=== PATIENT | male | born 1960 | race Caucasian/White ===

== ENCOUNTER 2017-01-14 11:31 | Emergency (ER) | payer BC ==
[2017-01-14] MEDS ORDERED: Sodium Chloride 0.9% 10 ML Syringe FLUSH PRN (11:39)
[2017-01-14 11:40] VITALS: BP 120/93
[2017-01-14] MEDS ORDERED: Sodium Chloride 0.9% 1,000 ML IV SCH (11:45)
[2017-01-14 12:20] LABS: CHLORIDE,CL 104 mmol/L (98-107); SODIUM,NA 138 mmol/L (136-145)
--- NOTE | 2017-01-14 12:23 | EDM.PDOC ---
ED HPI GI/ABDOMINAL - General Chief Complaint: Abdominal Pain Stated Complaint: LOWER LEFT ABDOMINAL PAIN Time Seen by Provider: 01/14/17 11:40 Source of Information: Reports: Patient, Family, RN, RN notes reviewed History Limitations: Reports: No limitations - History of Present Illness INITIAL COMMENTS - FREE TEXT/NARRATIVE: Patient presents to the ED at [facility] with LLQ abdominal pain. The pain started last night. Patient is concerned because he has a strong history of diverticulitis. Patient states he has felt nauseated at times. No vomiting or diarrhea. He does take Metamucil daily since his last bout of diverticulitis 3 years ago. He does drink diet soda daily. He does consume caffeine. No recent changes with medications. No close family members with similar symptoms. Symptom Onset Date: 01/13/17 Symptom Onset Time: 20:00 Timing/Duration: Reports: Constant, Waxing/waning Location: LLQ Quality: Reports: throbbing Severity: moderate Improves with: Reports: sitting up Worsens with: Reports: palpation, lying down Context: Denies: sick contact, bad/questionable food, out of country travel, recent surgery, recent trauma Associated Symptoms: Reports: denies other symptoms - Related Data Allergies/ADRs: Allergies Allergy/AdvReac Type Severity Reaction Status Date / Time No Known Allergies Allergy Verified 03/08/16 09:29 Home Meds: Home Meds Ciprofloxacin HCl [Cipro] 500 mg PO BID #18 tablet 01/14/17 [Rx] metroNIDAZOLE [Flagyl] 500 mg PO Q8H #26 tablet 01/14/17 [Rx] Past Medical History - Past Health History Medical/Surgical History: Denies Medical/Surgical History HEENT History: Reports: None Cardiovascular History: Reports: High cholesterol Gastrointestinal History: Reports: Other (see below) Other Gastrointestinal History: DIVERTICULITIS. CHRONIC CHEST PAIN AND DYSPHAGIA Genitourinary History: Reports: None Other Genitourinary History: ED Musculoskeletal History: Reports: Other (see below) Other Musculoskeletal History: BRUSITIS IN BOTH SHOULDERS Neurological History: Reports: None Psychiatric History: Reports: None Other Psychiatric History: INSOMNIA Endocrine/Metabolic History: Reports: None Hematologic History: Reports: None Oncologic (Cancer) History: Reports: None Dermatologic History: Reports: None - Past Surgical History HEENT Surgical History: Reports: None Cardiovascular Surgical History: Reports: None GI Surgical History: Reports: Colonoscopy Musculoskeletal Surgical History: Reports: Arthroscopic procedure, Shoulder surgery Social & Family History - Tobacco Use Smoking Status *Q: Never Smoker Years of Tobacco use: 5 Used Tobacco, but Quit: Yes Month Tobacco Last Used: 1978 Second Hand Smoke Exposure: No - Alcohol Use Days Per Week of Alcohol Use: 0 - Recreational Drug Use Recreational Drug Use: No ED ROS GENERAL - Review of Systems Review Of Systems: See Below Constitutional: Denies: fever, chills, weakness, decreased appetite, weight loss Respiratory: Denies: shortness of breath, cough Cardiovascular: Denies: Chest pain, Palpitations GI/Abdominal: Reports: Abdominal pain, Nausea. Denies: Bloody stool, Diarrhea, Decreased appetite, Vomiting : Reports: no symptoms Skin: Reports: no symptoms Neurological: Denies: dizziness, headache, numbness, paresthesia, tingling ED EXAM, GI/ABD - Physical Exam Exam: See Below Exam Limited By: No limitations General Appearance: alert, no apparent distress Respiratory/Chest: no respiratory distress, lungs clear, normal breath sounds Cardiovascular: regular rate, rhythm GI/Abdominal: soft, hyperactive bowel sounds, tenderness, guarding, rebound (Male) Exam: Deferred Neurological: alert, oriented Skin Exam: Warm, Dry, Intact, Normal color, No rash Course - Vital Signs Last Recorded V/S: Last Vital Signs Temp 35.6 C 01/14/17 11:39 Pulse 75 01/14/17 11:39 Resp 18 01/14/17 11:39 BP 120/93 H 01/14/17 11:39 Pulse Ox 99 01/14/17 11:39 - Orders/Labs/Meds Orders: Active Orders 24 hr Category Date Time Status Abdomen Pelvis w Cont [CT] Stat Exams 01/14/17 11:40 Taken Sodium Chloride 0.9% [Normal Saline] 1,000 ml Med 01/14/17 11:45 Active IV ASDIRECTED Sodium Chloride 0.9% [Saline Flush] Med 01/14/17 11:39 Active 10 ml FLUSH ASDIRECTED PRN metroNIDAZOLE [Take Home: metroNIDAZOLE 500 MG, 4 Tab Med 01/14/17 13:53 Once Pack] 1 packet PO ONETIME ONE Peripheral IV Insertion Adult [OM.PC] Routine Oth 01/14/17 11:39 Ordered Medication Orders Sodium Chloride (Normal Saline) 1,000 mls @ 999 mls/hr IV ASDIRECTED GARRY Last Admin: 01/14/17 11:58 Dose: 999 mls/hr Sodium Chloride (Saline Flush) 10 ml FLUSH ASDIRECTED PRN PRN Reason: Keep Vein Open Last Admin: 01/14/17 11:57 Dose: 10 ml Labs: Laboratory Tests 01/14/17 01/14/17 Range/Units 11:54 11:54 WBC 8.7 (4.0-10.0) x10^3/uL RBC 5.24 (4.5-6.0) x10^6/uL Hgb 15.4 (14.0-18.0) g/dL Hct 44.5 (40.0-52.0) % MCV 84.9 (78.0-93.0) fL MCH 29.4 (26.0-32.0) pg MCHC 34.6 (32.0-36.0) g/dL RDW Coeff of Marco 12.5 (10.0-15.0) % Plt Count 218 (130-400) x10^3/uL Neut % (Auto) 75.4 (50.0-80.0) % Lymph % (Auto) 12.9 L (25.0-50.0) % [place] % (Auto) 8.7 (2.0-11.0) % Eos % (Auto) 2.4 (0.0-4.0) % Baso % (Auto) 0.6 (0.2-1.2) % Sodium 138 (136-145) mmol/L Potassium 4.3 (3.5-5.1) mmol/L Chloride 104 (98-107) mmol/L Carbon Dioxide 31 (21-32) mmol/L BUN 15 (7-18) mg/dL Creatinine 1.5 H (0.70-1.30) mg/dL Est Cr Clr Drug Dosing TNP Estimated GFR (MDRD) 49 Glucose 107 H (74-106) mg/dL Calcium 9.1 (8.5-10.1) mg/dL Corrected Calcium 9.34 (8.5-10.1) mg/dL Total Bilirubin 0.6 (0.2-1.0) mg/dL AST 23 (15-37) U/L ALT 38 (16-63) U/L Alkaline Phosphatase 85 (46-116) U/L Total Protein 7.4 (6.4-8.2) g/dL Albumin 3.7 (3.4-5.0) g/dL Globulin 3.7 Albumin/Globulin Ratio 1.00 Amylase 59 (25-115) U/L Lipase 193 (73-393) U/L Meds: Medications Generic Name Dose Route Start Last Admin Trade Name Freq PRN Reason Stop Dose Admin Sodium Chloride 1,000 mls @ 999 mls/hr 01/14/17 11:45 01/14/17 11:58 Normal Saline IV 999 mls/hr ASDIRECTED GARRY Administration Sodium Chloride 10 ml 01/14/17 11:39 01/14/17 11:57 Saline Flush FLUSH 10 ml ASDIRECTED PRN Administration Keep Vein Open Discontinued Medications Generic Name Dose Route Start Last Admin Trade Name Freq PRN Reason Stop Dose Admin Ciprofloxacin 1 packet 01/14/17 13:53 Take Home: Ciprofloxacin 500 Mg, 2 Tab Pack PO 01/14/17 13:54 ONETIME ONE Sodium Chloride 100 mls @ 3 mls/sec 01/14/17 12:47 01/14/17 13:18 Normal Saline IV 01/14/17 12:48 3 mls/sec ONETIME ONE Administration Iopamidol 100 ml 01/14/17 12:47 01/14/17 13:18 Isovue-300 (61%) IVPUSH 01/14/17 12:48 100 ml ONETIME ONE Administration - Radiology Interpretation CT Results Date: 01/14/17 CT Results Time: 13:45 Departure - Departure Time of Disposition: 13:51 Disposition: Home, Self-Care 01 Condition: good Clinical Impression: Diverticulitis large intestine Qualifiers: Diverticulitis bleeding: without bleeding Diverticulitis complication: without perforation or abscess Qualified Code(s): K57.32 - Diverticulitis of large intestine without perforation or abscess without bleeding Prescriptions: Ciprofloxacin HCl [Cipro] 500 mg PO BID #18 tablet metroNIDAZOLE [Flagyl] 500 mg PO Q8H #26 tablet Instructions: Diverticulitis Referrals: Narda Dimas PA-C [Primary Care Provider] - Forms: ED Department Discharge Additional Instructions: 1. Stay well hydrated and rest 2. Eat a bland diet; avoid spicy foods or greasy foods 3. No carbonated beverages or caffeine 4. Take medications for the full coarse, even if you are feeling better 5. See you Primary as symptoms warrant ED Communication - ED Communication Date/Time Date: 01/14/17 Time Called: 13:45 - Discussed Case With (1) Discussed Case With (1): Radiologist (Dr. Jan Cobso) - Conversation Summary Radiology Reading Discussed with Radiologist: Yes Summary Comment: Diverticulitis of the Sigmoid colong, otherwise negative CT of Abdomen/Pelvis - Problem List Review Problem List Initiated/Reviewed/Updated: Yes - My Orders Last 24 Hours: My Active Orders 01/14/17 11:39 Sodium Chloride 0.9% [Saline Flush] 10 ml FLUSH ASDIRECTED PRN Peripheral IV Insertion Adult [OM.PC] Routine 01/14/17 11:40 Abdomen Pelvis w Cont [CT] Stat 01/14/17 11:45 Sodium Chloride 0.9% [Normal Saline] 1,000 ml IV ASDIRECTED 01/14/17 13:53 metroNIDAZOLE [Take Home: metroNIDAZOLE 500 MG, 4 Tab Pack] 1 packet PO ONETIME ONE - Assessment/Plan Last 24 Hours: My Active Orders 01/14/17 11:39 Sodium Chloride 0.9% [Saline Flush] 10 ml FLUSH ASDIRECTED PRN Peripheral IV Insertion Adult [OM.PC] Routine 01/14/17 11:40 Abdomen Pelvis w Cont [CT] Stat 01/14/17 11:45 Sodium Chloride 0.9% [Normal Saline] 1,000 ml IV ASDIRECTED 01/14/17 13:53 metroNIDAZOLE [Take Home: metroNIDAZOLE 500 MG, 4 Tab Pack] 1 packet PO ONETIME ONE
[2017-01-14] MEDS ORDERED: Iopamidol 612 MG/ML 100 ML Bottle IVPUSH ONE (12:47)
[2017-01-14] MEDS ORDERED: Sodium Chloride 0.9% 100 ML IV ONE (12:47)
[2017-01-14] MEDS ORDERED: Take Home: Ciprofloxacin 500 MG Tab, 2 Tab Pack PO ONE (13:53)
[2017-01-14] MEDS ORDERED: Take Home: metroNIDAZOLE 500 MG Tab, 4 Tab Pack PO ONE (13:53)
== END 2017-01-14 14:10 | disposition home or self-care (01) ==
LOC: VM.ED 11:31
DX: K57.32 Diverticulitis of large intestine without perforation or abscess without bleeding (principal); E78.00 Pure hypercholesterolemia, unspecified; Z98.890 Other specified postprocedural states
CPT/HCPCS: 36415; 74177; 80053; 82150; 83690; 85025; 96360; 99284; A9270; J7030; J7050; Q9967

== ENCOUNTER 2019-04-14 08:37 | Day surgery (SDC) | payer BC ==
[~2019-04-14 08:37] MED LIST: Lactated Ringers 1,000 ML IV SCH; Sodium Chloride 0.9% 10 ML Syringe FLUSH PRN
[2019-04-14] MEDS ORDERED: Lidocaine 4% 5 ML Amp ONE (08:43)
[2019-04-14] MEDS ORDERED: Propofol 200 MG/20 ML SDV ONE (11:01)
[2019-04-14] MEDS ORDERED: fentaNYL 100 MCG/2 ML SDV ONE (11:01)
[2019-04-14] MEDS ORDERED: Midazolam 1 MG/ML 2 ML SDV ONE (11:01)
[2019-04-14 11:08] VITALS: BP 97/51
--- NOTE | 2019-04-14 11:43 | OR ---
PREOPERATIVE DIAGNOSIS: Gastroesophageal reflux disease with possible stenosis. POSTOPERATIVE DIAGNOSES: Gastroesophageal reflux disease with stenosis, significant antritis with ulceration. PROCEDURE PROPOSED: Upper gastrointestinal panendoscopy with antral biopsies. PROCEDURE DONE: Upper gastrointestinal panendoscopy with antral biopsies. INDICATION: This is a 59-year-old gentleman bothered with GERD and some dysphagia over the last 4 years. He is presently taking Zantac. He does drink a lot of caffeine. He is now having trouble with chicken and beef sticking and has quite a bit of chest pressure until it resolves. He has occasionally had to regurgitate his undigested food. He comes in now for EGD with possible need for further intervention. TECHNIQUE: The patient brought to the endoscopy suite, placed in left lateral decubitus position. He was sedated per [employer] with propofol. The flexible video colonoscope was then passed transorally and under visualization advanced well into the duodenum. The duodenum and duodenal bulb were unremarkable. The antrum revealed significant antritis with linear ulcerations. A couple of antral biopsies were taken to rule out H. pylori. The body of the stomach otherwise looked quite healthy. He had some prominent rugal folds. The GE junction did not reveal any evidence of hiatal hernia, but he did have some active GERD without any signs of Sterling's esophagus, and there was some stenosis probably down to about 15 mm. The remainder of esophagus was normal and I therefore felt that he should proceed with further intervention. FINAL IMPRESSION: 1. Active gastroesophageal reflux disease with esophageal stenosis. 2. Significant antritis with ulceration. PLAN: I am going to place him on Protonix 40 mg daily and I am going to recommend we proceed with endoscopic dilation. SCM: 04/14/2019 11:18:13 MODL: 04/14/2019 11:36:32 /[id number]
--- NOTE | 2019-04-14 11:47 | OR ---
PREOPERATIVE DIAGNOSIS: Esophageal stenosis. POSTOPERATIVE DIAGNOSIS: Esophageal stenosis. PROCEDURE PROPOSED: Endoscopic balloon esophageal dilation. PROCEDURE DONE: Endoscopic balloon esophageal dilation. INDICATION: A 59-year-old gentleman who underwent gastroscopy for GERD, was found to have stenosis. TECHNIQUE: The endoscope was in the esophagus. I then brought in a 15 to 18 mm balloon, placed it across the GE junction. The GE junction was at 42 cm from the incisors. I then inflated the balloon to 15 mm, followed by 16.5, followed by 18 mm. There was some very slight bleeding. I felt that we could go higher, therefore switched our balloons, brought in an 18 to 20 mm balloon and started at 18 mm, again went up to 19 and then 20 mm. It appeared that we got good dilation of the stenosis. There was minimal bleeding and discomfort. The balloon and endoscope were then removed. FINAL IMPRESSION: Esophageal stenosis dilated to 20 mm. PLAN: Protonix 40 mg daily. He needs to cut out the caffeine consumption. He will be on Protonix for 3 months and he should follow up with his PCP as needed for any future problems. SCM: 04/14/2019 11:18:13 MODL: 04/14/2019 11:37:42 /[id number]
== END 2019-04-14 12:31 | disposition home or self-care (01) ==
LOC: VM.SDS 08:37
PROVIDERS: ATTEND Surgery
DX: K22.2 Esophageal obstruction (principal); K21.9 Gastro-esophageal reflux disease without esophagitis; K29.60 Other gastritis without bleeding; K25.9 Gastric ulcer, unspecified as acute or chronic, without hemorrhage or perforation; E78.00 Pure hypercholesterolemia, unspecified; M17.12 Unilateral primary osteoarthritis, left knee; E78.5 Hyperlipidemia, unspecified; K57.92 Diverticulitis of intestine, part unspecified, without perforation or abscess without bleeding; Z79.899 Other long term (current) drug therapy; Z79.82 Long term (current) use of aspirin
CPT/HCPCS: 43239; 43249; C1726; J2250; J2704; J3010; J7120

== ENCOUNTER 2022-04-20 12:03 | Day surgery (SDC) | payer OTHER ==
[2022-04-20] MEDS ORDERED: fentaNYL 100 MCG/2 ML SDV ONE (13:03)
[2022-04-20] MEDS ORDERED: Propofol 200 MG/20 ML SDV ONE ×2 (13:03)
[2022-04-20 15:17] VITALS: BP 132/79; PULSE 65
[2022-06-08] MEDS ORDERED: Lactated Ringers 1,000 ML IV SCH (07:00)
== END 2022-04-20 16:06 | disposition home or self-care (01) ==
LOC: VM.SDS 12:03
PROVIDERS: ATTEND Family Medicine
DX: Z12.11 Encounter for screening for malignant neoplasm of colon (principal); K57.30 Diverticulosis of large intestine without perforation or abscess without bleeding; K31.7 Polyp of stomach and duodenum; K29.70 Gastritis, unspecified, without bleeding; K29.80 Duodenitis without bleeding; K64.9 Unspecified hemorrhoids; E78.00 Pure hypercholesterolemia, unspecified; G47.00 Insomnia, unspecified; J45.40 Moderate persistent asthma, uncomplicated; D12.6 Benign neoplasm of colon, unspecified; N18.30 Chronic kidney disease, stage 3 unspecified; K21.9 Gastro-esophageal reflux disease without esophagitis; Z86.010 Personal history of colon polyps; Z98.890 Other specified postprocedural states; Z79.51 Long term (current) use of inhaled steroids; Z79.899 Other long term (current) drug therapy
CPT/HCPCS: J2704; J3010; J7120

== ENCOUNTER 2024-03-02 08:15 | Emergency (ER) | payer OTHER ==
[2024-03-02 08:50] VITALS: BP 131/62; PULSE 74
[2024-03-02] MEDS: predniSONE 20 MG Tab PO ONE (09:07)
== END 2024-03-02 09:20 | disposition home or self-care (01) ==
LOC: VM.ED 08:15
DX: L50.9 Urticaria, unspecified (principal); E78.00 Pure hypercholesterolemia, unspecified; Z79.899 Other long term (current) drug therapy; Z79.51 Long term (current) use of inhaled steroids
CPT/HCPCS: 99282; J7512; 99283